=== PATIENT | male | born 1945 | race Caucasian/White ===

== ENCOUNTER 2017-09-15 11:55 | Inpatient (IN) | payer MEDICARE, OTHER ==
[~2017-09-15] VITALS: Ht 172.7 cm; Wt 96.7 kg
[2017-09-15 12:40] LABS: BASOPHILS % (AUTO) 0.7 % (0.0-2.0); EOSINOPHILS % (AUTO) 4.2 % (1.0-6.0); HEMATOCRIT 43.8 % (41-53); HEMOGLOBIN 15.3 g/dL (13.5-17.5); LYMPHOCYTES % (AUTO) 13.6 % (22.0-44.0); MEAN CORPUSCULAR HEMOGLOBIN 30.1 pg (26.0-34.0); MEAN CORPUSCULAR HGB CONC 34.9 G/dL (31.0-37.0); MEAN CORPUSCULAR VOLUME 86 fL (80-100); MONOCYTES # (AUTO) 0.6 K/uL (0.1-1.0); MONOCYTES % (AUTO) 8.7 % (2.0-9.0); NEUTROPHILS # (AUTO) 5.4 K/uL (1.8-7.7); NEUTROPHILS % (AUTO) 72.8 % (40.0-70.0); RED BLOOD CELL COUNT(AUTO) 5.08 MIL/uL (4.50-5.90); RED CELL DISTRIBUTION WIDTH 14.8 % (11.5-14.5)
[2017-09-15 12:48] LABS: ANION GAP 7 mmol/L (8-16); CALCIUM, TOTAL 8.5 mg/dL (8.8-10.5); CARBON DIOXIDE 23 mmol/L (22-29); CHLORIDE 105 mmol/L (98-107); CREATININE 1.26 mg/dL (0.60-1.30); GLOMERULAR FILTR. RATE CALC 56 mL/min (>60); GLUCOSE,RANDOM 120 mg/dL (70-110); POTASSIUM 3.8 mmol/L (3.5-5.1); SODIUM SERUM 135 mmol/L (136-145); UREA NITROGEN, BLOOD 11 mg/dL (7-18)
[2017-09-15 13:01] LABS: ALANINE AMINOTRANSFERASE 38 U/L (12-78); ALBUMIN 3.4 g/dL (3.4-5.0); ALKALINE PHOSPHATASE 133 U/L (46-116); ASPARTATE AMINOTRANSFERASE 23 U/L (15-37); BILIRUBIN,TOTAL 0.5 mg/dL (0.1-1.0); TOTAL PROTEIN, SERUM 7.1 g/dL (6.4-8.2)
[2017-09-15 13:06] LABS: PLATELET COUNT (AUTO) 181 K/uL (150-450)
[2017-09-15] MEDS ORDERED: HALOPERIDOL 5 MG TABLET PO PRN (16:00)
[2017-09-15] MEDS ORDERED: LORazepam 2 MG TABLET PO PRN (16:00)
[2017-09-15 17:08] VITALS: BP 150/97
[2017-09-16 07:50] LABS: FREE T4 (FREE THYROXINE) 0.74 ng/dL (0.76-1.46); THYROID STIMULATING HORMONE 3.5 uIU/mL (0.36-3.74)
[2017-09-16] MEDS: METOPROLOL SUCCINATE 50 MG ER TABLET PO SCH (08:25)
[2017-09-16] MEDS: FUROSEMIDE 40 MG TABLET PO SCH (08:25)
[2017-09-16] MEDS: ASPIRIN 81 MG EC TABLET PO SCH (08:25)
[2017-09-16] MEDS: LOSARTAN POTASSIUM 50 MG TABLET PO SCH (08:25)
[2017-09-16] MEDS: APIXABAN 5 MG TABLET PO SCH ×2 (08:25→16:21)
[2017-09-16] MEDS: ATORVASTATIN CALCIUM 40 MG TABLET PO SCH (08:25)
[2017-09-16 08:30] VITALS: BP 123/76
[2017-09-16] MEDS ORDERED: APIXABAN 5 MG TABLET PO SCH (09:00)
[2017-09-16] MEDS ORDERED: BACITRACIN 28.4 GM OINTMENT TP PRN (09:15)
[2017-09-16] MEDS ORDERED: ALBUTEROL SULFATE HFA 90 MCG/PUFF 8 GM INHALER IH PRN (09:15)
[2017-09-16] MEDS ORDERED: MAGNESIUM HYDROXIDE SUSPENSION 30 ML UDCUP PO PRN (09:15)
[2017-09-16] MEDS ORDERED: BENZOCAINE/MENTHOL LOZENGE MM PRN (09:15)
[2017-09-16] MEDS ORDERED: MAG HYDROX/AL HYDROX/SIMETH ES 30 ML SUSPENSION UDCUP PO PRN (09:15)
[2017-09-16] MEDS ORDERED: CloNIDine HCL 0.1 MG TABLET PO PRN (09:15)
[2017-09-16] MEDS ORDERED: LOPERAMIDE HCL 2 MG CAPSULE PO PRN (09:15)
[2017-09-16] MEDS ORDERED: ACETAMINOPHEN 325 MG TABLET PO PRN (09:15)
[2017-09-16] MEDS ORDERED: PETROLATUM,WHITE 71 GM JELLY TP PRN (09:15)
[2017-09-16] MEDS ORDERED: ONDANSETRON HCL 4 MG TABLET PO PRN (09:15)
[2017-09-16 17:39] VITALS: BP 131/84
[2017-09-16 20:50] VITALS: BP 117/74
[2017-09-16] MEDS: OLANZapine 10 MG TABLET PO SCH (20:59)
[2017-09-16 22:00] VITALS: BP 116/76
[2017-09-17 08:02] LABS: CALCIUM, TOTAL 8.8 mg/dL (8.8-10.5); CREATININE 1.53 mg/dL (0.60-1.30); POTASSIUM 4.5 mmol/L (3.5-5.1)
[2017-09-17] MEDS: LOSARTAN POTASSIUM 50 MG TABLET PO SCH (08:36)
[2017-09-17] MEDS: FUROSEMIDE 40 MG TABLET PO SCH (08:37)
[2017-09-17] MEDS: ATORVASTATIN CALCIUM 40 MG TABLET PO SCH (08:37)
[2017-09-17] MEDS: METOPROLOL SUCCINATE 50 MG ER TABLET PO SCH (08:37)
[2017-09-17] MEDS: APIXABAN 5 MG TABLET PO SCH ×2 (08:37→16:42)
[2017-09-17] MEDS: ASPIRIN 81 MG EC TABLET PO SCH (08:37)
[2017-09-17] MEDS: OMEPRAZOLE 20 MG CAPSULE PO SCH (08:37)
[2017-09-17 09:57] VITALS: BP 138/89
[2017-09-17] MEDS: OLANZapine 10 MG TABLET PO SCH (20:46)
[2017-09-17] MEDS: ZOLPIDEM TARTRATE 10 MG TABLET PO PRN (20:50)
[2017-09-17 22:06] VITALS: BP 129/78
[2017-09-18 06:53] LABS: HEMATOCRIT 44.7 % (41-53); HEMOGLOBIN 15.8 g/dL (13.5-17.5); MEAN CORPUSCULAR HEMOGLOBIN 30.3 pg (26.0-34.0); MEAN CORPUSCULAR HGB CONC 35.3 G/dL (31.0-37.0); MEAN CORPUSCULAR VOLUME 86 fL (80-100); PLATELET COUNT (AUTO) 202 K/uL (150-450); RED BLOOD CELL COUNT(AUTO) 5.19 MIL/uL (4.50-5.90); RED CELL DISTRIBUTION WIDTH 15.3 % (11.5-14.5)
[2017-09-18 08:11] LABS: BAND NEUTROPHILS % (MANUAL) 2 % (0-5); EOSINOPHILS % (MANUAL) 4 % (1-6); LYMPHOCYTES % (MANUAL) 19 % (22-44); MONOCYTES % (MANUAL) 9 % (2-9); SEGMENTED NEUTROPHILS % 66 % (40-70)
[2017-09-18] MEDS: ATORVASTATIN CALCIUM 40 MG TABLET PO SCH (08:14)
[2017-09-18] MEDS: LOSARTAN POTASSIUM 50 MG TABLET PO SCH (08:14)
[2017-09-18] MEDS: ASPIRIN 81 MG EC TABLET PO SCH (08:14)
[2017-09-18] MEDS: APIXABAN 5 MG TABLET PO SCH ×2 (08:14→16:19)
[2017-09-18] MEDS: OMEPRAZOLE 20 MG CAPSULE PO SCH (08:15)
[2017-09-18] MEDS: METOPROLOL SUCCINATE 50 MG ER TABLET PO SCH (08:15)
[2017-09-18] MEDS: FUROSEMIDE 40 MG TABLET PO SCH (08:15)
[2017-09-18 10:34] VITALS: BP 130/88
[2017-09-18 17:02] VITALS: BP 106/61
[2017-09-18] MEDS ORDERED: ASPIRIN 81 MG EC TABLET PO SCH (18:30)
[2017-09-18] MEDS: ZOLPIDEM TARTRATE 10 MG TABLET PO PRN (20:06)
[2017-09-18] MEDS: OLANZapine 10 MG TABLET PO SCH (20:06)
[2017-09-19] MEDS: LOSARTAN POTASSIUM 50 MG TABLET PO SCH (08:12)
[2017-09-19] MEDS: METOPROLOL SUCCINATE 50 MG ER TABLET PO SCH (08:12)
[2017-09-19] MEDS: ASPIRIN 81 MG EC TABLET PO SCH (08:13)
[2017-09-19] MEDS: APIXABAN 5 MG TABLET PO SCH (08:13)
[2017-09-19] MEDS: ATORVASTATIN CALCIUM 40 MG TABLET PO SCH (08:13)
[2017-09-19] MEDS: OMEPRAZOLE 20 MG CAPSULE PO SCH (08:14)
[2017-09-19] MEDS: FUROSEMIDE 40 MG TABLET PO SCH (08:20)
[2017-09-19 09:00] VITALS: BP 110/61
[2017-09-19] MEDS ORDERED: OLAN10TA3 PO (09:44)
[2017-09-19] MEDS ORDERED: ASPI81 PO (09:46)
[2017-09-19] MEDS ORDERED: METO-558 PO (09:46)
[2017-09-19] MEDS ORDERED: FURO40 PO (09:46)
[2017-09-19] MEDS ORDERED: ATOR40TA28 PO (09:46)
[2017-09-19] MEDS ORDERED: APIX5TAB PO (09:46)
[2017-09-19] MEDS ORDERED: LOSA50TA37 PO (09:46)
[2017-09-19] MEDS ORDERED: OMEP20 PO (09:47)
== END 2017-09-19 12:15 | disposition home or self-care (01) | DRG 885 ==
LOC: EMS 11:57 → 3EX 15:37
PROVIDERS: ADMIT Psychiatry & Neurology Psychiatry; ATTEND Psychiatry & Neurology Psychiatry
DX: F20.0 Paranoid schizophrenia (principal); E87.1 Hypo-osmolality and hyponatremia; F17.210 Nicotine dependence, cigarettes, uncomplicated; E78.5 Hyperlipidemia, unspecified; E78.00 Pure hypercholesterolemia, unspecified; F10.10 Alcohol abuse, uncomplicated; F12.90 Cannabis use, unspecified, uncomplicated; F17.200 Nicotine dependence, unspecified, uncomplicated; F32.9 Major depressive disorder, single episode, unspecified; I25.10 Atherosclerotic heart disease of native coronary artery without angina pectoris; J44.9 Chronic obstructive pulmonary disease, unspecified; I50.9 Heart failure, unspecified; K59.00 Constipation, unspecified; M19.90 Unspecified osteoarthritis, unspecified site; Z95.1 Presence of aortocoronary bypass graft; I11.0 Hypertensive heart disease with heart failure; Z71.6 Tobacco abuse counseling; Z71.51 Drug abuse counseling and surveillance of drug abuser; Z71.41 Alcohol abuse counseling and surveillance of alcoholic; Z88.5 Allergy status to narcotic agent; Z81.8 Family history of other mental and behavioral disorders
CPT/HCPCS: 83735; 84100; 84439; 84443; 85007; 87081; 99285; G0480